=== PATIENT | female | born 1945 | race Caucasian/White ===

== ENCOUNTER 2024-08-20 09:41 | Outpatient (REF) | payer MEDICARE, SELFPAY ==
[2024-08-20 18:07] LABS: Alanine Aminotransferase 7 U/L (0-31); Aspartate Amino Transferase 19 U/L (5-31); Estimated Glomerular Filt Rate 52; Uric Acid 5.4 mg/dL (2.4-5.7)
== END 2024-08-20 09:42 | disposition home or self-care (01) ==
LOC: HO.HKASLDS 09:41
PROVIDERS: PCP Nurse Practitioner Gerontology; Visit Provider Internal Medicine Rheumatology
DX: M10.9 Gout, unspecified (principal); Z79.60 Long term (current) use of unspecified immunomodulators and immunosuppressants; M17.0 Bilateral primary osteoarthritis of knee
CPT/HCPCS: 36415; 82565; 84450; 84460; 84550; 99212

== ENCOUNTER 2024-08-20 09:41 | Outpatient (AMB) | payer MEDICARE, SELFPAY ==
--- NOTE | 2024-08-20 09:56 | MHC.OFFVIS ---
Vital Signs 08/20/24 09:57 Height 5 ft 1 in Weight 139 lb BMI 26.3 BP 120/70 Blood Pressure Location Lt brachial Position Sitting Pulse 68 Pulse Source Pulse Oximeter Pulse Oximetry (%) 98 Oxygen Delivery Method Room Air Intake Visit Reasons: Arth./Gout Allergies codeine Allergy (Mild, Verified 08/20/24 10:00) Rash Latex, Natural Rubber Allergy (Mild, Verified 08/20/24 10:00) Rash shellfish derived Allergy (Mild, Verified 08/20/24 10:00) Anaphylaxis Sulfa (Sulfonamide Antibiotics) Allergy (Mild, Verified 08/20/24 10:00) Rash HPI HPI Arth./Gout: Details: She has not had any gout flare. She continues to take allopurinol 100 mg daily. She has received a cortisone injection for her L-spine, which relieved her knee pain. She has not been consistent with exercises learned from PT in the past for knee strengthening. 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 Torn meniscus Bunion Surgical History (Updated 08/20/24 @ 10:08 by Dali Neff CMA) History of cataract surgery History of bladder surgery H/O: hysterectomy History of left knee replacement Social History (Updated 08/20/24 @ 10:09 by Dali Neff CMA) Household Members: Spouse Patient Tobacco Use Status: Former Tobacco user Review of Systems Const All systems reviewed & are unremarkable except as noted in HPI and below Physical Exam Vital Signs: Last Vital Signs Pulse 68 08/20/24 09:57 BP 120/70 08/20/24 09:57 Pulse Ox 98 08/20/24 09:57 Oxygen Delivery Method Room Air 08/20/24 09:57 BMI result Body Mass Index 26.3 Const Other: General: Comfortable Skin: No lesions seen MSK: No tenderness of any joints. Heberden's nodes present. Good range of motion of upper extremity. Good external rotation of hips. Left knee flexion 90 degrees. Right knee flexion 120 degrees. No synovitis. Assessment & Plan Assessment & Plan (1) Gout: Comment: History of podagra. Crystal proven gout. Controlled on allopurinol 100 mg daily. Code(s): M10.9 - Gout, unspecified Category: Medical Qualifiers: Gout site: foot Gout etiology: idiopathic Chronicity: chronic Plan: Labs for disease and drug monitoring ordered Return to clinic in 1 year or sooner if needed (2) Osteoarthritis of knees, bilateral: Comment: Bilateral. Pain is controlled at this time. History of left total knee replacement 2022 and right cortisone injection 05/19/2023. Code(s): M17.0 - Bilateral primary osteoarthritis of knee Category: Medical Plan: We discussed importance of home exercise program. I recommended she exercise 30 minutes a day Return to clinic in 1 year or sooner if needed Orders: Orders Uric Acid Today M10.9 - Gout, unspecified Creatinine Today Z79.60 - [facility] (current) use of unspecified immunomodulators and immunosuppressants Alanine Aminotransferase Today Z79.60 - predatory animal exterminator (current) use of unspecified immunomodulators and immunosuppressants Aspartate Amino Transferase Today Z79.60 - [facility] (current) use of unspecified immunomodulators and immunosuppressants Medications: New allopurinol 100 mg PO DAILY 90 tabs 3RF Coding Level of Care Code Est Pt Level 4 (12530) Complex EM visit Add On G2211 Diagnoses Gout M10.9 Gout site: foot Gout etiology: idiopathic Chronicity: chronic Osteoarthritis of knees, bilateral M17.0
[2024-08-20 09:57] VITALS: BP 120/70; PULSE 68; O2SAT 98; BMI 26.3
--- OUTSIDE RECORDS SUMMARY | 2024-08-20 10:36 | XMS_ITS | Continuity of Care Document ---
Author Organization [facility] Address [address] [place] [address]- Care Team Providers Care Sterile Processing Tech Name Role Phone Francisco GUZMAN, Komal Curry Primary Care Physician Encounter 08/08/24 - 08/15/24 [facility] [address], [facility] [address] [place], [place] [address] Attending Physician: Le Prado Admitting Physician: Le Prado Referring Physician: Le Prado Encounter Type: OutPatient One Time Allergies, Adverse Reactions, Alerts Substance Criticality Severity Reaction Reaction Severity Status codeine violent headache Act amairani nitrofurantoin hives Activ e sulfa drugs anaphylaxis Active ezetimibe 1 Unable to assess criticality Persistent Severe Active shellfish anaphylaxis Active Azulfidine chest pain Active Latex hives Active 1dizziness, falls, staggering gait Immunizations Given and Recorded Vaccine Date Status Refusal Reason influenza virus vaccine, inactivated 04/28/23 Artis rded influenza virus vaccine, inactivated 05/14/22 Artis rded influenza virus vaccine, inactivated 04/28/21 Artis rded influenza virus vaccine, inactivated 04/15/20 Artis rded influenza virus vaccine, inactivated 04/25/18 Artis rded influenza virus vaccine, inactivated 05/09/17 Artis rded influenza virus vaccine, inactivated 05/01/15 Artis rded influenza virus vaccine, inactivated 04/18/14 Artis rded influenza virus vaccine, inactivated 05/10/13 Artis rded influenza virus vaccine, inactivated 04/20/12 Artis rded influenza virus vaccine, inactivated 05/13/11 Artis rded influenza virus vaccine, inactivated 04/13/10 Artis rded [id number] 12y+ bivalent booster vax 06/03/22 Recorded SARS-CoV-2 mRNA ([id number]) vax 11/25/21 Recorded pneumococcal 13-valent vaccine 09/07/21 Recorded SARS-CoV-2 (COVID-19) mRNA BNT-162b2 vac 05/14/21 Recorded SARS-CoV-2 (COVID-19) mRNA BNT-162b2 vac 10/11/20 Recorded SARS-CoV-2 (COVID-19) mRNA BNT-162b2 vac 09/18/20 Recorded Medications acetaminophen 325 mg oral tablet 650 mg, By Mouth, Every 6 hours, may take OTC not to exceed 3000 mg/day, Refills 0, Maintenance, 06/01/23 7:08:00 AM EDT, Partial fill upon patient request if the prescription is for a schedule II opioid drug. Start Date: 06/01/23 Status: Ordered Repeat number: 1 allopurinol 100 mg oral tablet 100 mg, 1, tablet, By Mouth, Daily, # 90 tablet, Refills 0, Maintenance, 07/18/22 8:25:00 AM EST, Partial fill upon patient request if the prescription is for a schedule II opioid drug. Start Date: 07/18/22 Status: Ordered Quantity: 90.0 Unit: tablet Repeat number: 1 amLODIPine 2.5 mg oral tablet 1 tablet, By Mouth, Daily, # 90 tablet, 1 Refills, Maintenance, 04/04/24 2:08:00 PM EDT, [facility]/pharmacy#[id number], 155, cm, 03/04/24 10:19:00 EDT, Height, 60.9, kg, 07/30/23 13:17:00 EST, Dry Weight Start Date: 04/04/24 Status: Ordered Quantity: 90.0 Unit: tablet Repeat number: 2 atenolol 25 mg oral tablet 1, tablet, By Mouth, Daily, # 90 tablet, Refills 1, Tot. Refills 1, Maintenance, 07/08/24 2:57:00 PMEST, Route to Pharmacy Electronically, [facility]/pharmacy #[id number], 155, cm, 06/25/24 12:42:00 EST, Height, 60.9, kg, 07/30/23 13:17:00 EST, Dry Weight Start Date: 07/08/24 Status: Ordered Quantity: 90.0 Unit: tablet Repeat number: 2 balsalazide 750 mg oral capsule 3 capsule = 2,250 mg, By Mouth, 2 times a day, 0 Refills, Maintenance, 06/17/14 11:55:00 AM EST Start Date: 06/17/14 Status: Ordered Repeat number: 1 Colace sodium 100 mg oral capsule 1 capsule = 100 mg, By Mouth, 2 times a day, PRN for constipation, # 20 capsule, 0 Refills, Maintenance, 07/04/14 3:00:20 PM EST, Capsule Start Date: 07/04/14 Status: Ordered Quantity: 20.0 Unit: capsule Repeat number: 1 cyanocobalamin 1000 mcg/ml injectable solution 1 mL = 1,000 mcg, Intramuscular, Every 30 days, # 10 mL, 0 Refills, Maintenance, 03/04/24 10:59:00 AMEDT, Solution, Partial fill upon patient request if the prescription is for a schedule II opioid drug. Start Date: 03/04/24 Status: Ordered Quantity: 10.0 Unit: mL Repeat number: 1 dicyclomine 10 mg oral capsule 1 capsule = 10 mg, By Mouth, 3 times a day, # 40 capsule, 0 Refills, Maintenance, 05/16/13 11:58:59AM EDT, Capsule Start Date: 05/16/13 Stop Date: 05/26/13 Status: Ordered Quantity: 40.0 Unit: capsule Repeat number: 1 levothyroxine 0.05 mg oral tablet 1 tablet, By Mouth, Daily, # 90 tablet, 0 Refills, Maintenance, 07/17/24 10:22:00 AM EST, [facility]/pharmacy #[id number], 155, cm, 06/25/24 12:42:00 EST, Height, 60.9, kg, 07/30/23 13:17:00 EST, Dry Weight Start Date: 07/17/24 Status: Ordered Quantity: 90.0 Unit: tablet Repeat number: 1 trospium chloride 20 mg oral tablet 1 tablet = 20 mg, By Mouth, Daily, 0 Refills, Maintenance, 06/17/14 11:53:45 AM EST Start Date: 06/17/14 Status: Ordered Repeat number: 1 Problem List Condition Confirmation Course Effective Dates Status Health Status Informant 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 Active Bladder incontinence Confirmed Active Chronic kidney disease, stage 3a 1 Confirmed Active Chronic obstructive lung disease Confirmed Active Vitamin B 12 deficiency Confirmed Active COVID-19 2 Confirmed 07/31/23 Active Cystocele Confirmed Active Diffuse spasm of esophagus Confirmed Active Esophageal dysmotility Confirmed Active Gastroesophageal reflux disease Confirmed Active Chronic gout Confirmed Active Herpes simplex type 1 infection Confirmed Active Hypercholesterolemia Confirmed Active Hyperkalemia Confirmed Active Hypertensive disorder Confirmed Active Hypothyroidism Confirmed Active Melanocytic nevus Confirmed Active Left knee DJD Confirmed Active Osteopenia Confirmed Active Renal impairment Confirmed Active Sciatic nerve lesion Confirmed Active Ulcerative colitis Confirmed Active 1Per chart review meets GFR criteria 2Problem added by Discern Expert Results Radiology Reports * Exam Date Time Procedure Performing Provider Status 08/08/24 11:47 AM [facility] Josr Ramírez my; Auth (Verified) Notes: ([facility]) Reason For Exam: Cyst of kidney, acquired RESULT: [place] Reason: Cyst of kidney, acquired THE STUDY WAS PERFORMED AT [facility] , [address] [place] [address] COMPARISON: None. FINDINGS: Right kidney: 9 cm in length. No hydronephrosis. Normal parenchymal thickness and echotexture. No stones. No suspicious mass. 9 mm upper pole cortical cyst. 1.5 cm upper pole cyst. 3.8 cm lower pole cyst (previously 4 x 3.7 x 3.6 cm. Left kidney: 9.2 cm in length. No hydronephrosis. Normal parenchymal thickness and echotexture. No stones. No suspicious mass. Multiple cysts, the largest in the mid- upper portion, 3.6 x 3.2 x 3.3 (previously 3.6 x 3.3 x 3.5 cm), and containing a thin partial septation, present previously. 9 mm upper pole cyst. 8 mm interpolar cyst. 1.8 cm lower pole cyst. IMPRESSION: No hydronephrosis or suspicious mass. Multiple bilateral cysts. Dominant cyst on the left has a thin peripheral partial septation, unchanged. WSN: [id number] Ordering Physician: Le Lujan Dictated By: Josh Fair MD Dictated Date/Time: 08/08/24 1:04 pm Reviewed By: Josh Fair MD Signed By: Josh Fair MD Signed Date/Time: 08/08/24 1:04 pm Transcribed By: NILSON Transcribed Date/Time: 08/08/24 12:57 pm Social History Social History Type Response Smoking Status Former smoker, quit more than 30 days ago entered on: 08/10/21 Sex Sex Representation Female (finding) Patient Care team information Care Team Personnel Name: Francisco GUZMAN, Komal Curry Position: [facility] PCO Associate Professional Member Role: PCP Address: [address] [place] [address] Telecom: Name: Debbie Ramachandran RN Position: [facility] W/ Mino Member Role: Primary Care Nurse Name: Abril Jarvis RN Position: [facility] RN Member Role: Primary Care Nurse Name: Heath Matthews RN Position: [facility] RN Member Role: Primary Care Nurse Care Team Related Persons Name: ASHLEY CALLOWAY Name: LIBERTY VALENCIA Insurance Providers Guarantor name: BOBBY VALENCIA Health Plan Information #: 2 Payer: [employer]EX Member Number: [id number] Policy Number: NA Group Number: NA Health Plan Information #: 1 Payer: MEDICARE PART B OUTPT Member Number: [id number] Policy Number: NA Group Number: NA
== END 2024-08-20 10:38 | disposition home or self-care (01) ==
PROVIDERS: PCP Nurse Practitioner Gerontology; Visit Provider Internal Medicine Rheumatology
DX: M10.9 Gout, unspecified (principal); M17.0 Bilateral primary osteoarthritis of knee
CPT/HCPCS: 99214; G2211